=== PATIENT | female | born 1990 | race Caucasian/White ===

== ENCOUNTER 2018-02-26 11:18 | Inpatient (IN) | payer MEDICAID ==
[~2018-02-26] VITALS: Ht 167.6 cm; Wt 89.8 kg
[2018-02-26] MEDS ORDERED: ABAC1TAB14 PO (11:21)
[2018-02-26] MEDS ORDERED: KETOROLAC 30MG/ML VIAL IV STA (12:28)
[2018-02-26] MEDS ORDERED: SODIUM CHLORIDE 0.9% 1,000 ML IV ONE (12:28)
[2018-02-26] MEDS ORDERED: MORPHINE SULFATE 4 MG/ML CPJ (NOT FOR IM USE) IV STA (12:28)
[2018-02-26] MEDS ORDERED: FAMOTIDINE 20MG/2ML VIAL IV STA (12:28)
[2018-02-26] MEDS ORDERED: ONDANSETRON HCL 4MG/2ML VIAL IV STA (12:28)
[2018-02-26 12:51] LABS: CHLORIDE 108 mEq/L (98-107); PROTHROMBIN TIME 10.9 sec (9.4-11.6)
[2018-02-26 12:52] LABS: BASOPHILS % 0.2 % (0.0-2.0); EOSINOPHILS % 0.4 % (0.0-5.0); HEMATOCRIT. 38.5 % (36.0-48.0); HEMOGLOBIN. 12.8 g/dL (12.0-16.0); LYMPHOCYTES % 13.7 % (20.0-50.0); MEAN CORPUSCULAR HEMOGLOBIN 30.5 pg (28.0-32.0); MEAN CORPUSCULAR VOLUME 91.4 fL (81.0-99.0); MEAN PLATELET VOLUME 7.7 fl (7.4-10.4); MONOCYTES % 5.3 % (2.0-8.0); NEUTROPHILS % 80.4 % (40.0-76.0); PLATELET 220 x1000/uL (130-400); RED BLOOD CELL COUNT 4.21 mill/uL (4.2-5.4); RED CELL DISTRIBUTION WIDTH 13.6 % (11.6-14.6)
[2018-02-26 13:03] LABS: HCG SCREEN POSITIVE
[2018-02-26 14:26] LABS: CLARITY URINE CLOUDY (CLEAR); COLOR URINE YELLOW (YELLOW); KETONES URINE TRACE (NEGATIVE); LEUKOCYTE ESTERASE URINE TRACE (NEGATIVE); NITRITE URINE NEGATIVE (NEGATIVE); OCCULT BLOOD URINE 2+ (NEGATIVE); PH URINE 6.5 (4.5-8.0); PROTEIN URINE NEGATIVE (NEGATIVE)
[2018-02-26 16:00] VITALS: BP 135/53
[2018-02-26 17:00] VITALS: BP 135/53
[2018-02-26 20:00] VITALS: BP 126/51
[2018-02-26] MEDS ORDERED: HYDROCODONE/ACETAMINOPHEN 5/325MG TABLET PO PRN (21:15)
[2018-02-26] MEDS ORDERED: RHO(D) IMMUNE GLOBULIN 300 MCG/SYR IM NR (21:30)
[2018-02-26] MEDS: HYDROCODONE/ACETAMINOPHEN 5/325MG TABLET PO PRN (23:58)
[2018-02-27] VITALS: BP 115/55
[2018-02-27] MEDS ORDERED: TRIUMEQ PO SCH
[2018-02-27 04:00] VITALS: BP 130/77
[2018-02-27 08:00] VITALS: BP 118/56
[2018-02-27] MEDS: HYDROCODONE/ACETAMINOPHEN 5/325MG TABLET PO PRN (08:49)
[2018-02-27 12:00] VITALS: BP 119/64
[2018-02-27 15:20] LABS: HEMATOCRIT 31.4 % (36.0-48.0); HEMOGLOBIN 11.1 g/dL (12.0-16.0); MEAN CORPUSCULAR HEMOGLOBIN 32.2 pg (28.0-32.0); MEAN CORPUSCULAR VOLUME 90.9 fL (81.0-99.0); PLATELET 200 x1000/uL (130-400); RED BLOOD CELL COUNT 3.46 mill/uL (4.2-5.4); RED CELL DISTRIBUTION WIDTH 13.5 % (11.6-14.6)
[2018-02-27 16:00] VITALS: BP 117/61
[2018-02-27 16:53] VITALS: BP 128/76
== END 2018-02-27 18:05 | disposition home or self-care (01) | DRG 566 ==
LOC: ER 11:23 → ENRESERV 15:17 → 6EST 15:34 → EDBEDREQTM 15:38 → EDBEDREQ 15:38 → 6EST 02-27 08:33
PROVIDERS: ADMIT Obstetrics & Gynecology; ATTEND Obstetrics & Gynecology
PROC: 30233S1 Transfusion of Nonautologous Globulin into Peripheral Vein, Percutaneous Approach (ICD-10-PCS; principal; 2018-02-26)
DX: O00.90 Unspecified ectopic pregnancy without intrauterine pregnancy (principal); O99.321 Drug use complicating pregnancy, first trimester; F41.9 Anxiety disorder, unspecified; F12.90 Cannabis use, unspecified, uncomplicated; O99.341 Other mental disorders complicating pregnancy, first trimester
CPT/HCPCS: 36415; 76830; 76856; 80053; 81003; 83690; 84484; 84702; 84703; 85025; 85027; 85610; 86850; 86900; 90384; J1885; J2270; J2405; J3490; J7030